=== PATIENT | female | born 1950 | race Two or more races ===

== ENCOUNTER 2017-06-12 11:37 | Outpatient (CLI) | payer OTHER ==
[~2017-06-12 11:37] MED LIST: ASPIR 8181 MG; ENALAPRIL MALEA20 MG; ISOSORBIDE DINI20 MG PO; METFORMIN HCL500 MG; NAPR500T14 PO; PRILOSEC OTC20 MG PO; PROVENTIL HFA6.7 GM; SIMVASTATIN20 MG PO; [UNRECOGNIZED DRUG - OTHER]
[2017-06-15] MEDS ORDERED: NABUMETONE500 MG PO (10:05)
[2017-06-15] MEDS ORDERED: NORFLEX100MG PO (10:05)
== END 2017-06-12 12:00 | disposition home or self-care (01) ==
LOC: NUCLEAR 11:37
DX: R60.9 Edema, unspecified (principal)

== ENCOUNTER 2017-06-13 10:38 | Outpatient (CLI) | payer OTHER ==
[2017-06-15] MEDS ORDERED: NABUMETONE500 MG PO (10:05)
[2017-06-15] MEDS ORDERED: NORFLEX100MG PO (10:05)
== END 2017-06-13 10:42 | disposition home or self-care (01) ==
LOC: NUCLEAR 10:38
DX: R60.9 Edema, unspecified (principal); I73.9 Peripheral vascular disease, unspecified

== ENCOUNTER → 2017-06-15 | Outpatient (CLI) | payer OTHER ==
[~2017-06-15] MED LIST changes: +NABUMETONE500 MG PO; +NORFLEX100MG PO
== END | disposition home or self-care (01) ==
LOC: RAD 11:37
DX: Z96.659 Presence of unspecified artificial knee joint (principal); M79.642 Pain in left hand; M54.2 Cervicalgia

== ENCOUNTER 2018-06-21 08:33 | Outpatient (CLI) | payer OTHER | END 2018-06-21 11:23 | disposition home or self-care (01) | LOC: RAD 08:33 | DX: M75.01 Adhesive capsulitis of right shoulder (principal) ==

== ENCOUNTER 2018-12-30 08:00 | Day surgery (SDC) | payer OTHER | END 2018-12-30 13:45 | disposition home or self-care (01) | LOC: AMB-ENDOS 08:00 | DX: K64.1 Second degree hemorrhoids (principal); Z12.11 Encounter for screening for malignant neoplasm of colon ==

== ENCOUNTER 2020-01-27 11:53 | Outpatient (CLI) | payer OTHER ==
[~2020-01-27 11:53] MED LIST changes: +ORPHENADRI30 MG/1 M1 IJ; +TORADOL60 MG IM
== END 2020-01-27 12:01 | disposition home or self-care (01) ==
LOC: RAD 11:53
PROVIDERS: ATTEND Orthopaedic Surgery
DX: M43.8X7 Other specified deforming dorsopathies, lumbosacral region (principal); M48.061 Spinal stenosis, lumbar region without neurogenic claudication

== ENCOUNTER 2020-08-19 18:39 | Emergency (ER) | payer OTHER ==
[~2020-08-19] VITALS: Ht 162.6 cm; Wt 90.7 kg
[~2020-08-19 18:39] MED LIST changes: +BACLOFEN20 MG PO; +MELOXICAM15 MG PO; +MOBIC7.5 MG PO; +ZANAFLEX2 MG PO
[2020-08-19] MEDS ORDERED: BACTRIM DS TAB1 EACH PO (19:47)
== END 2020-08-19 22:42 | disposition home or self-care (01) ==
LOC: ER 18:39
DX: L02.31 Cutaneous abscess of buttock (principal)

== ENCOUNTER 2021-02-07 12:09 | Outpatient (CLI) | payer OTHER ==
[~2021-02-07 12:09] MED LIST changes: +BACTRIM DS TAB1 EACH PO; +NABUMETONE750 MG PO; +ZANAFLEX4 MG PO
== END 2021-02-07 12:15 | disposition home or self-care (01) ==
LOC: MRI 12:09
DX: M47.897 Other spondylosis, lumbosacral region (principal); M54.59 Other low back pain
CPT/HCPCS: 72148

== ENCOUNTER 2021-03-21 09:23 | Outpatient (CLI) | payer OTHER ==
[~2021-03-21 09:23] MED LIST changes: +DEPO-MEDRO40 MG/1 ML IJ; +LIDODERM1 EACH TOP; +ZANAFLEX2 M1 PO
[2021-03-24] MEDS ORDERED: LIDODERM1 EACH TOP ×2 (10:47→10:49)
== END 2021-03-21 09:29 | disposition home or self-care (01) ==
LOC: RAD 09:23
PROVIDERS: ATTEND Physical Medicine & Rehabilitation
DX: M70.72 Other bursitis of hip, left hip (principal); M25.559 Pain in unspecified hip